=== PATIENT | female | born 1945 | race Caucasian/White ===

== ENCOUNTER 2018-01-06 07:38 | Emergency (ER) | payer OTHER, BC ==
[2018-01-06 07:43] VITALS: BP 176/75; PULSE 56; TEMP 97.6; BMI 24.9
--- NOTE | 2018-01-06 07:50 | PDOC ---
Attending Attestation - Resident Resident Name: Keo Stocktonel - ED Attending Attestation I have performed the following: I have examined & evaluated the patient, The case was reviewed & discussed with the resident, I agree w/resident's findings & plan, Exceptions are as noted - HPI HPI: 01/06/18 07:56 72y F hx of HL, presents with complaint of R eyelid swelling and redness, x 3 days. Pt notes it started as mild pain to the inner aspect of lower lid a few days ago, then got wgradually worse, pt has been using warm compress without improvement. Pt dneies any fever/chills, denies blurry vision or double vision. pt denie sany URIs. no recent surgeries. On exam the pt has erythema/inflammation primarily in the inner canthus of the R eye with radiation of the erythema to the lower eyelid with edema. no proptosis, EOMI normal pts vitals noted for elevated high blood pressure will repeat suspect dacrocystits with associated preseptal celluitis no signs of septal/orbital cellulitis will start abx ophtho fu - Physicial Exam PE: 01/07/18 20:11 see above - Medical Decision Making 01/07/18 20:11 see above
--- NOTE | 2018-01-06 07:50 | PDOC ---
History of Present Illness - General Chief Complaint: Eye Problem Stated Complaint: R EYE SWELLING Time Seen by Provider: 01/06/18 07:44 - History of Present Illness Initial Comments: 01/06/18 08:10 The patient is a 72 year old female with a history of HLD who presents for evaluation of right eyelid swelling and redness. The patient reports right lower eyelid swelling and redness beginning 2 days ago. She notes persistent symptoms with some pain prompting her presentation to the ED for evaluation. She denies any vision changes including blurry vision or double vision. She otherwise denies fevers, chills, SOB, chest pain, nausea, vomiting, abdominal pain, or changes with urination or bowel movements. Past History - Past Medical History Allergies/Adverse Reactions: Allergies Allergy/AdvReac Type Severity Reaction Status Date / Time No Known Allergies Allergy Verified 01/06/18 07:39 Home Medications: Ambulatory Orders Aspirin [ASA] 81 mg PO DAILY 06/20/13 Atorvastatin Calcium [Lipitor] 10 mg PO HS 06/20/13 Multivit-Min/FA/Lycopene/Lut [Centrum Silver Tablet] 1 each PO 06/20/13 Amox-Tr/K Cl [Augmentin - 875Mg Tablet] 1 tab PO BID #14 tablet 01/06/18 COPD: No Hypercholesterolemia: Yes - Surgical History Appendectomy: Yes Cholecystectomy: Yes - Suicide/Smoking/Psychosocial Hx Smoking Status: No Smoking History: Never smoked Number of Cigarettes Smoked Daily: 0 Information on smoking cessation initiated: No Hx Alcohol Use: No Drug/Substance Use Hx: No Substance Use Type: None Review of Systems - Review of Systems Comments:: 01/06/18 08:12 Constitutional: No fevers, chills, fatigue, malaise HEENT: Right infra-orbital swelling and redness. No Rhinorrhea, nasal congestion , visual changes Cardiovascular: No chest pain, syncope, palpitations, lightheadedness Respiratory: No Cough, SOB, Hemoptysis, Gastrointestinal: No Abdominal pain, Nausea, Vomiting, Constipation, Diarrhea, Melena Genitourinary: No Dysuria, Frequency, Urgency, Hesitancy, Hematuria, Flank pain Musculoskeletal: No Myalgia, arthralgia Skin: No rashes, itching, bruising, pallor Neurologic: No Headache, Dizziness, Numbness, Weakness, or Tingling Psychiatric: No Hallucinations. No SI or HI *Physical Exam - Vital Signs Last Vital Signs Temp Pulse Resp BP Pulse Ox 97.6 F 56 L 18 176/75 100 01/06/18 07:39 01/06/18 07:39 01/06/18 07:39 01/06/18 07:39 01/06/18 07:39 - Physical Exam Comments: 01/06/18 08:13 General Appearance: Nourished. No Apparent Distress HEENT: EOMI, BARRIE. Erythema to the inferior medial aspect of the lower right eyelid with extension along the inferior aspect of the lower eyelid with some notable edema without fluculance or purulent drainage. No Pharyngeal Erythema, Tonsillar Exudate, Tonsillar Erythema Neck: No Cervical Lymphadenopathy Respiratory/Chest: Lungs Clear, Normal Breath Sounds. No Crackles, Rales, Rhonchi, Wheezing Cardiovascular: Regular Rhythm, Regular Rate. No Murmur, Gallops, Rubs Gastrointestinal/Abdominal: Normal Bowel Sounds, Soft. No Guarding, Rebound, Tenderness Musculoskeletal: No CVA Tenderness Extremity: Normal Capillary Refill Integumentary: Normal Color, Dry, Warm Neurologic: Fully Oriented, Alert, Normal Mood/Affect, Normal Response, Medical Decision Making - Medical Decision Making 01/06/18 08:16 The patient is a 72 year old female with a history of HLD who presents for evaluation of right eyelid swelling and redness. Differential includes but is not limited to: Periorbital cellulitis, blepharitis, dacrocystitis. Given the patient's physical exam it is likely her symptoms are due to a dacrocystitis or periorbital cellulitis. The patient does not demonstrate any red flag signs on exam. We are comfortable discharging the patient home on augmentin 875mg BID for 7 days with primary care provider follow up. We discussed the plan as well as return precautions with the patient who voiced understanding and is agreeable. *DC/Admit/Observation/Transfer Diagnosis at time of Disposition: Preseptal cellulitis Dacrocystitis Qualifiers: Laterality: right Qualified Code(s): H04.301 - Unspecified dacryocystitis of right lacrimal passage - Discharge Dispostion Disposition: HOME Condition at time of disposition: Good Admit: No - Prescriptions Prescriptions: Amox-Tr/K Cl [Augmentin - 875Mg Tablet] 1 tab PO BID #14 tablet - Referrals Referrals: Sasha Mobley MD [Primary Care Provider] - Dimas Arenas MD [Staff Physician] - - Patient Instructions Printed Discharge Instructions: DI for Cellulitis -- Adult, DI for Blepharitis Additional Instructions: Please return to the ER if you experience concerning or worsening symptoms including worsening pain, fevers, blurry vision, double vision, or pain with eye movement. You likely have an infection of your tear duct in your right eye. We have sent a prescription for antibiotics to your pharmacy that you should take twice a day for 7 days. You may also use warm compresses and massage to help reduce the swelling around your eye. Please call to schedule a follow up appointment with Dr. Armendariz with Opthamology within 3-4 days to further discuss management of your symptoms. - Post Discharge Activity
[2018-01-06] MEDS ORDERED: IBUPROFEN 400 MG TABLET (FP) PO ONE ×2 (08:43→08:50)
[2018-01-06] MEDS ORDERED: diphenhydrAMINE HCL 25 MG CAPSULE (FP) PO ONE ×2 (08:43→08:49)
== END 2018-01-06 09:08 | disposition home or self-care (01) ==
LOC: JER 07:38
DX: L03.213 Periorbital cellulitis (principal); E78.00 Pure hypercholesterolemia, unspecified; H04.301 Unspecified dacryocystitis of right lacrimal passage; Z79.82 Long term (current) use of aspirin
CPT/HCPCS: 99281-25

== ENCOUNTER 2018-04-04 10:32 | Emergency (ER) | payer OTHER, BC ==
[2018-04-04 10:37] VITALS: BP 148/74; PULSE 75; TEMP 98; BMI 24.9
--- NOTE | 2018-04-04 12:13 | PDOC ---
History of Present Illness - General Chief Complaint: Laceration Stated Complaint: LACERATION, MOUTH BLEED Time Seen by Provider: 04/04/18 12:02 History Source: Patient Exam Limitations: No Limitations - History of Present Illness Initial Comments: 04/04/18 12:16 Chief complaint: Fall Patient is a 72-year-old female with a history of hypertension and elevated cholesterol who is not on any blood thinners who tripped and fell and came to the ER cause of a laceration to the lower lip. Patient denies LOC. Patient is ambulatory. Patient is not sure if she is up-to-date on tetanus GENERAL/CONSTITUTIONAL: No fever, weakness. dizziness HEAD, EYES, EARS, NOSE AND THROAT: No change in vision. No ear pain or discharge. No sore throat. CARDIOVASCULAR: No chest pain RESPIRATORY: No shortness of breath or cough GASTROINTESTINAL: No pain, nausea, vomiting, diarrhea or constipation GENITOURINARY: No dysuria MUSCULOSKELETAL: No neck or back pain SKIN: No rash, + lip laceration NEUROLOGIC: No headache, vertigo, loss of consciousness, or loss of sensation. GENERAL: The patient is awake, alert, and fully oriented, in no acute distress. HEAD: Normal with no signs of trauma. EYES: Pupils equal, round and reactive to light, sclera anicteric, conjunctiva clear. ENT: pharynx: no erythema, no exudate, uvula midline. 1.5 cm laceration inside lower lip, no other intraoral oral trauma, including teeth Full range of motion to jaw, symmetrical bite and no tenderness or crepitus NECK: supple CHEST: clear, nontender, rr ABD: soft, nontender EXTREMITIES: Normal range of motion, no edema. NEURO: Mental status: The patient is oriented x3. Cranial nerves: Cranial nerves II through XII are intact Motor: The upper extremities are 5 over 5 in all muscle groups. The lower extremities are 5 over 5 in all muscle groups. Sensation: Sensation is intact to light touch throughout. Gait: Normal. Heel and toe walking are normal. Tandem gait is normal. SKIN: Warm, Dry 04/04/18 12:20 Past History - Past Medical History Allergies/Adverse Reactions: Allergies Allergy/AdvReac Type Severity Reaction Status Date / Time No Known Allergies Allergy Verified 04/04/18 10:34 Home Medications: Ambulatory Orders Aspirin [ASA] 81 mg PO DAILY 06/20/13 Atorvastatin Calcium [Lipitor] 10 mg PO HS 06/20/13 Multivit-Min/FA/Lycopene/Lut [Centrum Silver Tablet] 1 each PO DAILY 06/20/13 Amoxicillin - [Amoxicillin 875mg Tablet -] 875 mg PO BID #14 tab 04/04/18 COPD: No DVT: No HTN: Yes Hypercholesterolemia: Yes - Surgical History Appendectomy: Yes Cholecystectomy: Yes - Suicide/Smoking/Psychosocial Hx Smoking Status: No Smoking History: Never smoked Number of Cigarettes Smoked Daily: 0 Information on smoking cessation initiated: No Hx Alcohol Use: No Drug/Substance Use Hx: No Substance Use Type: None *Physical Exam - Vital Signs Last Vital Signs Temp Pulse Resp BP Pulse Ox 98.0 F 75 18 148/74 100 04/04/18 10:35 04/04/18 10:35 04/04/18 10:35 04/04/18 10:35 04/04/18 10:35 Procedures - Laceration/Wound Repair Lower Lip Wound Length: to 2.5 cm Wound Explored: clean Wound's Depth, Shape: superficial, linear Irrigated w/ Saline: Yes Betadine Prep: Yes Anesthesia: 2% Lidocaine Wound Repaired With: Sutures Suture Size/Type: 5:0, other (gut) Number of Sutures: 3 Medical Decision Making - Medical Decision Making 04/04/18 12:19 Patient who tripped and fell, no LOC with lower lip laceration. Pain to the mandible but able to open fully and has symmetrical bite without much discomfort. Patient is not sure she is up-to-date on tetanus. Patient did injure her wrist but does not have pain now and has full range of motion. Patient is not on any kind of antiplatelet or anticoagulation medication. Patient needs update for tetanus, suturing to laceration, no indication for imaging *DC/Admit/Observation/Transfer Diagnosis at time of Disposition: Lip laceration Qualifiers: Encounter type: initial encounter Qualified Code(s): S01.511A - Laceration without foreign body of lip, initial encounter - Discharge Dispostion Disposition: HOME Condition at time of disposition: Stable Decision to Admit order: No - Prescriptions Prescriptions: Amoxicillin - [Amoxicillin 875mg Tablet -] 875 mg PO BID #14 tab - Referrals Referrals: Sasha Mobley MD [Primary Care Provider] - - Patient Instructions Printed Discharge Instructions: DI for Closed Head Injury Additional Instructions: Do not use anything sharp near the sutures like a straw or, for or anything that will break the sutures, do not eat hard foods, only have liquids and soft foods for the next 3-5 days. This will heal quickly within the 3-5 days. The sutures will dissolve on their own but if you have any issues you can return and have them removed after 5 days. you can apply bacitracin several times daily until healed Take the amoxicillin one tablet twice a day for 7 days Return to the ER if fever, swelling, pus from the wound or feeling sicker or any other concerning issues. Return to the nearest ER if worsening headache, nausea, vomiting, unsteady or worsening symptoms. You can take Tylenol every 4 hours for headache. Limit reading, computer worker, videogames, texting which can make symptoms worse. Followup with your doctor as instructed - Post Discharge Activity
[2018-04-04] MEDS ORDERED: DIPHTH,PERTUSS(ACELL),TET 0.5 ML DISP.SYRIN IM ONE (12:32)
== END 2018-04-04 12:52 | disposition home or self-care (01) ==
LOC: JERFT 10:32
PROC: 3E0234Z Introduction of Serum, Toxoid and Vaccine into Muscle, Percutaneous Approach (ICD-10-PCS; principal; 2018-04-04)
PROC: 0CQ1XZZ Repair Lower Lip, External Approach (ICD-10-PCS; 2018-04-04)
DX: S01.511A Laceration without foreign body of lip, initial encounter (principal); W10.8XXA Fall (on) (from) other stairs and steps, initial encounter; Y93.89 Activity, other specified; Y92.89 Other specified places as the place of occurrence of the external cause; Y99.8 Other external cause status; I10 Essential (primary) hypertension; E78.00 Pure hypercholesterolemia, unspecified
CPT/HCPCS: 90715; 99281-25

== ENCOUNTER 2022-06-03 12:04 | Emergency (ER) | payer OTHER, BC ==
[2022-06-03 12:20] VITALS: TEMP 98.2; BMI 29.9
[2022-06-03 13:19] LABS: BASO % 0.7 % (0-2.0); EOS % 5.2 % (0-4.5); HEMATOCRIT 45.8 % (32.4-45.2); HEMOGLOBIN 15.6 GM/dL (10.7-15.3); LYMPH % 41.8 % (8-40); MCH 30.9 pg (25.7-33.7); MCHC 34.1 g/dl (32.0-36.0); MEAN CELL VOLUME 90.4 fl (80-96); MEAN PLT VOLUME 9.1 fl (7.5-11.1); MONO % 9.8 % (3.8-10.2); NEUT % 42.5 % (42.8-82.8); PLATELET COUNT 181 10^3/uL (134-434); RBC 5.07 M/mm3 (3.60-5.2); WHITE BLOOD COUNT 7.7 K/mm3 (4.0-10.0)
[2022-06-03 13:47] LABS: CALCIUM 10.6 mg/dL (8.5-10.1)
[2022-06-03 13:48] LABS: BLOOD UREA NITROGEN 19.2 mg/dL (7-18)
[2022-06-03 13:51] LABS: CREATININE 0.6 mg/dL (0.55-1.3)
[2022-06-03 13:53] LABS: BILIRUBIN,TOTAL 0.7 mg/dL (0.2-1)
[2022-06-03] MEDS ORDERED: VANCOMYCIN 1 GM in D5W (PRE-DOCKED) 1,000 MG/250 ML IVPB ONE (15:58)
[2022-06-03] MEDS ORDERED: VANCOMYCIN/WATER FOR INJ (PEG) 1,000 MG/200 ML BAG IVPB ONE (16:19)
[2022-06-03] MEDS ORDERED: CEFTRIAXONE 2 GM/100 ML BAG IVPB ONE (16:19)
[2022-06-03 17:04] VITALS: BP 157/81; PULSE 52; RESP 20
== END 2022-06-03 18:10 | disposition home or self-care (01) ==
LOC: JER 12:04
PROC: 3E033GC Introduction of Other Therapeutic Substance into Peripheral Vein, Percutaneous Approach (ICD-10-PCS; principal; 2022-06-03)
DX: L03.213 Periorbital cellulitis (principal)
CPT/HCPCS: 36415; 70481-TC; 80053; 85025; 99285-25; Q9967